=== PATIENT | male | born 1955 | race Two or more races ===

== ENCOUNTER 2016-10-26 03:31 | Emergency (ER) | payer BC ==
[2016-10-26 03:46] VITALS: BP 121/82; PULSE 77; TEMP 98; BMI 29.2
--- NOTE | 2016-10-26 04:15 | PDOC ---
History of Present Illness <Diane Zhou - Last Filed: 10/26/16 06:10> - History of Present Illness Initial Comments: 10/26/16 04:35 Patient is a 60 year old male with a history of kidney stones who presents with sudden onset left flank pain. Patient reports onset of 10/10 sharp left flank pain with radiation into his groin beginning 3 hours ago. He states that this pain is similar to previous kidney stones he has had. His last stone was 6 years ago. He reports that he usually receives fluids and IV meds which help resolve his stones. He has previously had unsuccessful attempts to take out stones and notes that medical management usually works. He endorses some sensation of incomplete emptying of his bladder and denies any hematuria. He denies any fevers, chills, chest pain, SOB, or abdominal pain. <Mian Welsh - Last Filed: 10/26/16 06:47> - General Chief Complaint: Pain, Acute Stated Complaint: SIDE PAIN Time Seen by Provider: 10/26/16 03:43 Past History <Diane Zhou - Last Filed: 10/26/16 06:10> - Past Medical History Anemia: No Asthma: No Cancer: No Cardiac Disorders: No CVA: No COPD: No CHF: No Dementia: No Diabetes: No GI Disorders: No Disorders: No HTN: No Hypercholesterolemia: No Kidney Stones: Yes Liver Disease: No Seizures: No Thyroid Disease: No - Surgical History Abdominal Surgery: No Appendectomy: No Cardiac Surgery: No Cholecystectomy: No Lung Surgery: No Neurologic Surgery: Yes (DISC SURGERY) Orthopedic Surgery: No - Immunization History Immunization Up to Date: No - Psycho/Social/Smoking Cessation Hx Anxiety: No Suicidal Ideation: No Smoking History: Current some day smoker Have you smoked in the past 12 months: Yes Information on smoking cessation initiated: No Hx Alcohol Use: Yes (Occasional) Drug/Substance Use Hx: No Substance Use Type: None Hx Substance Use Treatment: No <Mian Welsh - Last Filed: 10/26/16 06:47> - Past Medical History Allergies/Adverse Reactions: Allergies Allergy/AdvReac Type Severity Reaction Status Date / Time No Known Drug Allergies Allergy Verified 10/26/16 03:46 Home Medications: Ambulatory Orders Ibuprofen [Motrin -] 600 mg PO TID PRN #21 tablet 10/26/16 Review of Systems - Review of Systems Constitutional: No: Chills, Fever Respiratory: No: Cough, Shortness of Breath Cardiac (ROS): No: Chest Pain, Palpitations, Chest Tightness ABD/GI: No: Constipated, Diarrhea, Nausea, Vomiting : Yes: Flank Pain. No: Hematuria Integumentary: No: Rash Neurological: No: Headache, Dizziness <Mian Welsh - Last Filed: 10/26/16 06:47> *Physical Exam - Vital Signs Last Vital Signs Temp Pulse Resp BP Pulse Ox 98.0 F 77 20 121/82 98 10/26/16 03:42 10/26/16 03:42 10/26/16 03:42 10/26/16 03:42 10/26/16 03:42 <Diane Zhou - Last Filed: 10/26/16 06:10> - Vital Signs Last Vital Signs Temp Pulse Resp BP Pulse Ox 98.0 F 77 20 121/82 98 10/26/16 03:42 10/26/16 03:42 10/26/16 03:42 10/26/16 03:42 10/26/16 03:42 - Physical Exam Comments: 10/26/16 05:49 General Appearance: Nourished, Mild Distress Respiratory/Chest: Lungs Clear, Normal Breath Sounds. No Crackles, Rales, Rhonchi, Wheezing Cardiovascular: Regular Rhythm, Regular Rate. No Murmur, Gallop/S3, Gallop/S4 Gastrointestinal/Abdominal: Normal Bowel Sounds, Soft. No Guarding, Rebound, Tenderness Musculoskeletal: No CVA Tenderness Integumentary: Normal Color, Dry, Warm Neurologic: Fully Oriented, Alert, Normal Mood/Affect, Normal Response <Mian Welsh - Last Filed: 10/26/16 06:47> ED Treatment Course - LABORATORY CBC & Chemistry Diagram: 10/26/16 04:35 - ADDITIONAL ORDERS Additional order review: Laboratory Results 10/26/16 10/26/16 04:35 04:25 Creatine Kinase Cancelled Troponin I Cancelled Urine Color Straw Urine Appearance Clear Urine pH 5.0 Urine Protein Negative Urine Glucose (UA) Negative Urine Ketones Negative Urine Blood 2+ H Urine Nitrite Negative Urine Bilirubin Negative Urine Urobilinogen Negative Ur Leukocyte Esterase Negative 10/26/16 04:35 RBC 4.84 MCV 90.7 MCHC 33.8 RDW 13.3 MPV 8.6 Neutrophils % 68.5 D Lymphocytes % 20.6 D Monocytes % 7.1 Eosinophils % 3.2 Basophils % 0.6 - Medications Given in the ED: ED Medications Discontinued Medications Generic Name Dose Route Start Last Admin Trade Name Aryan PRN Reason Stop Dose Admin Ketorolac Tromethamine 30 mg 10/26/16 04:25 10/26/16 04:43 Toradol Injection - IVPUSH 10/26/16 04:26 30 mg ONCE ONE Administration Sodium Chloride 1,000 ml 10/26/16 04:25 10/26/16 04:43 Normal Saline - IV 10/26/16 04:26 1,000 ml ONCE ONE Administration <Diane Zhou - Last Filed: 10/26/16 06:10> - LABORATORY CBC & Chemistry Diagram: 10/26/16 04:35 <Mian Welsh - Last Filed: 10/26/16 06:47> Medical Decision Making - Medical Decision Making 10/26/16 05:47 Patient is a 60 year old male with a history of kidney stones who presents with left flank pain. Given the patient's history and exam as well as his presentation, it is likely that his pain is due to a kidney stone. The patient refuses CT scan so we will evaluate with UA. We will obtain a cbc as well. We will hydrate the patient and manage his pain as necessary. 10/26/16 06:40 Patient refusing cmp lab draw. States that his symptoms are improved and wishes to be discharged. We believe it is safe to discharge the patient home. <Mian Welsh - Last Filed: 10/26/16 06:47> *DC/Admit/Observation/Transfer <Diane Zhou - Last Filed: 10/26/16 06:10> - Attestations Physician Attestion: 10/26/16 06:43 I, Dr. Mian Welsh, attest that this document has been prepared under my direction and personally reviewed by me in its entirety. I further attest, that it accurately reflects all work, treatment, procedures and medical decision -making performed by me. <Mian Welsh - Last Filed: 10/26/16 06:47> Diagnosis at time of Disposition: Kidney stone - Discharge Dispostion Disposition: HOME Condition at time of disposition: Improved - Prescriptions Prescriptions: Ibuprofen [Motrin -] 600 mg PO TID PRN #21 tablet PRN Reason: Pain - Referrals Referrals: Maria Esther Collado [Primary Care Provider] - - Patient Instructions Printed Discharge Instructions: DI for Kidney Stones Additional Instructions: Please return to the ER if you experience worsening symptoms including worsening pain, fevers, or chills. Please take 600mg Motrin as need for pain relief up to three times a day. Please follow up with your Primary care provider and urologist regarding your visit to the ER today.
[2016-10-26] MEDS ORDERED: SODIUM CHLORIDE 0.9% 500 ML INFUS.BAG IV ONE (04:25)
[2016-10-26] MEDS ORDERED: KETOROLAC TROMETHAMINE 30 MG/1 ML VIAL IVPUSH ONE (04:25)
[2016-10-26] MEDS ORDERED: KETOROLAC TROMETHAMINE 30 MG/1 ML VIAL ONE (04:29)
[2016-10-26 04:47] LABS: BASOPHIL 0.6 % (0-2.0); EOSINOPHIL 3.2 % (0-4.5); MCH 30.6 pg (25.7-33.7); MCHC 33.8 g/dl (32.0-35.9); MEAN CELL VOLUME 90.7 fl (80-96); MEAN PLT VOLUME 8.6 fl (7.5-11.1); NEUTROPHILS 68.5 % (42.8-82.8); RDW 13.3 % (11.9-15.9); WHITE BLOOD COUNT 10.1 K/mm3 (4.0-10.0)
[2016-10-26 06:00] LABS: URINE APPEARANCE CLEAR; URINE BILIRUBIN NEGATIVE (NEGATIVE); URINE COLOR STRAW; URINE GLUCOSE (UA) NEGATIVE (NEGATIVE); URINE KETONE NEGATIVE (NEGATIVE); URINE LEUK ESTERASE NEGATIVE (NEGATIVE); URINE NITRITE NEGATIVE (NEGATIVE); URINE PROTEIN NEGATIVE (NEGATIVE); URINE UROBILINOGEN NEGATIVE E.U./dl (0.2-1.0)
[2016-10-26 06:04] LABS: PLATELET COMMENT2 NO CLOTTING DETECTED; PLATELET COUNT 273 K/MM3 (134-434); PLATELET ESTIMATE ADEQUATE (NORMAL)
[2016-10-26 06:06] LABS: URINE BLOOD 2+ (NEGATIVE)
[2016-10-26 06:08] LABS: URINE BACTERIA RARE /hpf (NONE SEEN); URINE MUCUS RARE; URINE RBC 4 /hpf (0-3); URINE WBC 1 /hpf (3-5)
== END 2016-10-26 07:13 | disposition home or self-care (01) ==
LOC: JER 03:31
PROC: 3E0333Z Introduction of Anti-inflammatory into Peripheral Vein, Percutaneous Approach (ICD-10-PCS; principal; 2016-10-26)
DX: N20.0 Calculus of kidney (principal); Z87.442 Personal history of urinary calculi
CPT/HCPCS: 36415; 81003; 81015; 85025; 99283-25